=== PATIENT | male | born 1990 | race Caucasian/White ===

== ENCOUNTER 2017-10-23 09:11 | Emergency (ER) | payer OTHER ==
[2017-10-23 09:25] VITALS: BP 134/71; PULSE 79; RESP 18; TEMP 97.6
--- NOTE | 2017-10-23 09:57 | ED ---
General Adult HPI - General Chief complaint: Dental/Oral Stated complaint: Abcess tooth Time Seen by Provider: 10/23/17 09:30 Source: patient, RN notes reviewed, old records reviewed Mode of arrival: ambulatory Limitations: no limitations - History of Present Illness Initial comments: This is a 27-year-old male to the ER for evaluation. Patient known facility. Patient comes in for evaluation regards to abscess. Patient states he has history of dental caries no disease. Follow-up with brian in his future plans. Currently no treatment or therapy. Denies any other complaints. No fevers - Related Data Previous Rx's Medication Instructions Recorded Hydrocodone/Acetaminophen [[place] 1 each PO Q6HR PRN #20 tab 04/20/16 5-325] Ibuprofen [Motrin] 600 mg PO Q6HR PRN #40 day 04/20/16 Ondansetron Odt [Zofran ODT] 4 mg PO Q8HR PRN #15 tab 04/20/16 Tamsulosin [Flomax] 0.4 mg PO DAILY #3 cap 04/20/16 Clindamycin HCl [Cleocin] 300 mg PO Q6HR #40 cap 10/23/17 Allergies Allergy/AdvReac Type Severity Reaction Status Date / Time Penicillins Allergy Unknown Verified 10/23/17 09:25 Childhood Review of Systems ROS Statement: Those systems with pertinent positive or pertinent negative responses have been documented in the HPI. ROS Other: All systems not noted in ROS Statement are negative. Past Medical History Past Medical History: No Reported History History of Any Multi-Drug Resistant Organisms: None Reported Past Surgical History: No Surgical Hx Reported Past Psychological History: No Psychological Hx Reported Smoking Status: Current every day smoker Past Alcohol Use History: Occasional Past Drug Use History: None Reported General Exam Limitations: no limitations General appearance: alert, in no apparent distress Head exam: Present: atraumatic, normocephalic, normal inspection Eye exam: Present: normal appearance, PERRL, EOMI. Absent: scleral icterus, conjunctival injection, periorbital swelling ENT exam: Present: normal exam, mucous membranes moist Neck exam: Present: normal inspection. Absent: tenderness, meningismus, lymphadenopathy Respiratory exam: Present: normal lung sounds bilaterally. Absent: respiratory distress, wheezes, rales, rhonchi, stridor Cardiovascular Exam: Present: regular rate, normal rhythm, normal heart sounds. Absent: systolic murmur, diastolic murmur, rubs, gallop, clicks GI/Abdominal exam: Present: soft, normal bowel sounds. Absent: distended, tenderness, guarding, rebound, rigid Extremities exam: Present: normal inspection, full ROM, normal capillary refill. Absent: tenderness, pedal edema, joint swelling, calf tenderness Back exam: Present: normal inspection Neurological exam: Present: alert, oriented X3, CN II-XII intact Psychiatric exam: Present: normal affect, normal mood Skin exam: Present: warm, dry, intact, normal color. Absent: rash Course Vital Signs 10/23/17 09:24 Temperature 97.6 F Pulse Rate 79 Respiratory 18 Rate Blood Pressure 134/71 O2 Sat by Pulse 100 Oximetry Medical Decision Making - Medical Decision Making 27 male the ER with dental pain, positive dental abscess. Patient discharged home with pain control anti-inflammatories, antibiotics Disposition Clinical Impression: Dental abscess Disposition: HOME SELF-CARE Condition: Good Instructions: Dental Abscess (ED) Prescriptions: Clindamycin HCl [Cleocin] 300 mg PO Q6HR #40 cap Is patient prescribed a controlled substance at d/c from ED?: No Referrals: Hussein Calvert MD [Primary Care Provider] - 1-2 days
== END 2017-10-23 10:06 | disposition home or self-care (01) ==
LOC: EC 09:11
DX: K04.7 Periapical abscess without sinus (principal); F17.200 Nicotine dependence, unspecified, uncomplicated; Z88.0 Allergy status to penicillin
CPT/HCPCS: 99283

== ENCOUNTER 2022-04-18 13:49 | Emergency (ER) | payer OTHER ==
[2022-04-18 15:04] VITALS: BP 120/69; PULSE 110; RESP 20; TEMP 99.5
[2022-04-18] MEDS ORDERED: SODIUM CHLORIDE 0.9% 1,000 ML IV STA (16:31)
[2022-04-18] MEDS ORDERED: ONDANSETRON 4 MG/2 ML VIAL IVP STA (16:31)
[2022-04-18 16:45] LABS: Basophils # (A) 0.1 k/uL (0-0.2); Basophils % (A) 1 %; Eosinophils % (A) 0 %; HCT 42.7 % (39.0-53.0); HGB 14.5 gm/dL (13.0-17.5); Lymphocytes # (A) 1.8 k/uL (1.0-4.8); Lymphocytes % (A) 15 %; MCHC 33.8 g/dL (31.0-37.0); MCV 88.5 fL (80.0-100.0); Mean Platelet Volume 8.3; Monocytes # (A) 1.1 k/uL (0-1.0); Monocytes % (A) 9 %; Neutrophils % (A) 73 %; Platelet Count 186 k/uL (150-450); RBC 4.83 m/uL (4.30-5.90); RDW 12.7 % (11.5-15.5); WBC 12.4 k/uL (3.8-10.6)
--- NOTE | 2022-04-18 16:45 | ED ---
General Adult HPI - General Chief complaint: Nausea/Vomiting/Diarrhea Stated complaint: Fever,Dehydration Time Seen by Provider: 04/18/22 16:27 Source: patient, RN notes reviewed Mode of arrival: ambulatory Limitations: no limitations - History of Present Illness Initial comments: 31-year-old male presents to the emergency department with multiple complaints. Patient states he has symptoms of the flu including cough, congestion, sore throat, nasal drainage, nausea, and vomiting. Patient states this is his third day of symptoms. Has not been taking anything to treat symptoms at home. Did not get an influenza immunization this year. Denies headache, dizziness, chest pain, abdominal pain, diarrhea, dysuria, or hematuria. - Related Data Previous Rx's Medication Instructions Recorded Hydrocodone/Acetaminophen [[place] 1 each PO Q6HR PRN #20 tab 04/20/16 5-325] Ibuprofen [Motrin] 600 mg PO Q6HR PRN #40 day 04/20/16 Ondansetron Odt [Zofran ODT] 4 mg PO Q8HR PRN #15 tab 04/20/16 Tamsulosin [Flomax] 0.4 mg PO DAILY #3 cap 04/20/16 clindamycin HCL [Cleocin] 300 mg PO Q6HR #40 cap 10/23/17 Ondansetron Odt [Zofran Odt] 4 mg PO Q8HR PRN #10 tab 04/18/22 Allergies Allergy/AdvReac Type Severity Reaction Status Date / Time Penicillins Allergy Unknown Verified 10/23/17 09:25 Childhood Review of Systems ROS Statement: Those systems with pertinent positive or pertinent negative responses have been documented in the HPI. ROS Other: All systems not noted in ROS Statement are negative. Past Medical History Past Medical History: No Reported History History of Any Multi-Drug Resistant Organisms: None Reported Past Surgical History: No Surgical Hx Reported Past Psychological History: No Psychological Hx Reported Past Alcohol Use History: Occasional Past Drug Use History: None Reported General Exam Limitations: no limitations General appearance: alert, in no apparent distress ENT exam: Present: normal exam, normal oropharynx, mucous membranes moist, TM's normal bilaterally Neck exam: Present: normal inspection, full ROM. Absent: tenderness, meningismus, lymphadenopathy Respiratory exam: Present: normal lung sounds bilaterally. Absent: respiratory distress, wheezes, rales, rhonchi, stridor, chest wall tenderness Cardiovascular Exam: Present: regular rate, normal rhythm, normal heart sounds GI/Abdominal exam: Present: soft, normal bowel sounds. Absent: distended, tenderness, guarding, rebound, rigid Neurological exam: Present: alert, oriented X3 Psychiatric exam: Present: normal affect, normal mood Skin exam: Present: warm, dry, intact, normal color. Absent: rash Course Vital Signs 04/18/22 15:00 Temperature 99.5 F Pulse Rate 110 H Respiratory 20 Rate Blood Pressure 120/69 O2 Sat by Pulse 100 Oximetry - Reevaluation(s) Reevaluation #1: 04/18/22 17:20 Upon reevaluation, patient reports improvement and return of hunger. Discussed discharge and patient verbalizes understanding. Medical Decision Making - Medical Decision Making 31-year-old male in no significant past medical history presents to the emergency department with a three-day history of fever, malaise, cough, sore throat, nausea, and vomiting. Upon exam, patient is well-appearing and in no acute distress. Cepheid is positive for influenza A. Laboratory studies show a mild leukocytosis. No electrolyte imbalance. Chest x-ray is unremarkable. Patient was given IV fluids and Zofran with improvement. He will be discharged home with symptomatic management instructions and prescribed Zofran for nausea. He is outside of the window for Tamiflu. Return parameters were discussed in detail. Patient verbalizes understanding and agrees with this plan. Attending: Jorge - Lab Data Result diagrams: 04/18/22 16:33 04/18/22 16:33 Lab Results 04/18/22 04/18/22 04/18/22 Range/Units 15:17 16:33 16:33 WBC 12.4 H (3.8-10.6) k/uL RBC 4.83 (4.30-5.90) m/uL Hgb 14.5 (13.0-17.5) gm/dL Hct 42.7 (39.0-53.0) % MCV 88.5 (80.0-100.0) fL MCH 30.0 (25.0-35.0) pg MCHC 33.8 (31.0-37.0) g/dL RDW 12.7 (11.5-15.5) % Plt Count 186 (150-450) k/uL MPV 8.3 Neutrophils % 73 % Lymphocytes % 15 % Monocytes % 9 % Eosinophils % 0 % Basophils % 1 % Neutrophils # 9.0 H (1.3-7.7) k/uL Lymphocytes # 1.8 (1.0-4.8) k/uL Monocytes # 1.1 H (0-1.0) k/uL Eosinophils # 0.0 (0-0.7) k/uL Basophils # 0.1 (0-0.2) k/uL Sodium 137 (137-145) mmol/L Potassium 3.9 (3.5-5.1) mmol/L Chloride 102 (98-107) mmol/L Carbon Dioxide 27 (22-30) mmol/L Anion Gap 8 mmol/L BUN 15 (9-20) mg/dL Creatinine 0.85 (0.66-1.25) mg/dL Est GFR (CKD-EPI)AfAm >90 (>60 ml/min/1.73 sqM) Est GFR (CKD-EPI)NonAf >90 (>60 ml/min/1.73 sqM) Glucose 96 (74-99) mg/dL Calcium 8.4 (8.4-10.2) mg/dL Total Bilirubin 0.7 (0.2-1.3) mg/dL AST 20 (17-59) U/L ALT 18 (4-49) U/L Alkaline Phosphatase 64 (38-126) U/L Total Protein 6.8 (6.3-8.2) g/dL Albumin 4.4 (3.5-5.0) g/dL Influenza Type A (PCR) Detected A (Not Detectd) Influenza Type B (PCR) Not Detected (Not Detectd) RSV (PCR) Not Detected (Not Detectd) SARS-CoV-2 (PCR) Not Detected (Not Detectd) - Radiology Data Radiology results: report reviewed, image reviewed Interpreted by me: Chest x-ray shows no focal area of consolidation or infiltrate. Two-view chest x-ray was obtained. Report was reviewed in its entirety. Impression per Dr. Izaguirre is normal chest. Disposition Clinical Impression: Influenza A Disposition: HOME SELF-CARE Condition: Stable Instructions (If sedation given, give patient instructions): Influenza (ED) Additional Instructions: Increase fluids. Consider an electrolyte solution such as Gatorade or Powerade. Alternate Tylenol and Motrin to treat symptoms of body aches and or fever. Your being prescribed Zofran for nausea. Take if needed. Rest. Follow-up with the PCP for recheck next week if needed. Return to the emergency department with any new, worsening, or concerning symptoms. Prescriptions: Ondansetron Odt [Zofran Odt] 4 mg PO Q8HR PRN #10 tab PRN Reason: Nausea Is patient prescribed a controlled substance at d/c from ED?: No Referrals: None,Stated [Primary Care Provider] - 1-2 days
[2022-04-18 16:53] LABS: ALT 18 U/L (4-49); AST 20 U/L (17-59); African American GFR (CKD) >90 (>60 ml/min/1.73 sqM); Albumin 4.4 g/dL (3.5-5.0); Alkaline Phosphatase 64 U/L (38-126); Anion Gap 8 mmol/L; Blood Urea Nitrogen 15 mg/dL (9-20); Calcium 8.4 mg/dL (8.4-10.2); Carbon Dioxide 27 mmol/L (22-30); Chloride 102 mmol/L (98-107); Glucose 96 mg/dL (74-99); Non-African American GFR(CKD) >90 (>60 ml/min/1.73 sqM); Potassium 3.9 mmol/L (3.5-5.1); Sodium 137 mmol/L (137-145); Total Bilirubin 0.7 mg/dL (0.2-1.3); Total Protein 6.8 g/dL (6.3-8.2)
--- NOTE | 2022-04-18 17:01 | XR ---
EXAMINATION TYPE: XR chest 2V DATE OF EXAM: 04/18/2022 COMPARISON: NONE HISTORY: Fever and cough TECHNIQUE: 2 view FINDINGS: Heart and mediastinum are normal. Lungs are clear. Diaphragm is normal. Bony thorax is inta ct. IMPRESSION: Normal chest.
== END 2022-04-18 17:52 | disposition home or self-care (01) ==
LOC: EC 13:49
DX: J10.1 Influenza due to other identified influenza virus with other respiratory manifestations (principal); Z20.822 Contact with and (suspected) exposure to COVID-19; Z88.0 Allergy status to penicillin
CPT/HCPCS: 99284; 96374; 96361; 36415; 80053; 85025; 87636; 71046; J2405